=== PATIENT | male | born 1985 | race Caucasian/White ===

== ENCOUNTER 2016-08-21 11:38 | Emergency (ER) | payer OTHER ==
--- NOTE | 2016-08-21 12:11 | RAD ---
History: Cough for 2 weeks. Comparison: None. Technique: 2 views Findings: The soft tissue and bony structures are unremarkable. The heart size is appropriate. No infiltrate, effusion or pneumothorax is observed. The hilar and mediastinal structures are normal. Impression: 1. A negative 2 view chest
== END 2016-08-21 13:27 | disposition home or self-care (01) ==
LOC: ED 11:38
DX: R05 Cough (principal); Z53.21 Procedure and treatment not carried out due to patient leaving prior to being seen by health care provider